=== PATIENT | female | born 1985 | race Caucasian/White ===

== ENCOUNTER 2016-10-01 07:55 | Emergency (ER) | payer MEDICAID ==
--- NOTE | 2016-10-02 06:25 | ER ---
ADMIT: 10/01/2016 RM/LOC: ER [facility] MR#: [id number] [facility] [address] [place], [place] [id number] RYAN BUCKNER [address] [place] [address] Emergency Room Report SEX: F AGE: 30 : 1985 DATE: 10/01/2016 TIME: 0755 hours. Please refer to my T-sheet for complete H and P. Briefly, patient is a 30-year- old who says she has been very busy recently and noticed at the end of the week Saturday that she had been having some urine retention and her back she has been hurting. She says her pain in her back at 6/10. She was seen by [facility], they put her on Cipro. She has taken a couple doses of that and she is here for evaluation. She is saying that she is still concerned that things are not improving. PHYSICAL EXAMINATION: VITAL SIGNS: Blood pressure 135/75, pulse 83, respirations 12, temp 99.2, and sat 96%. GENERAL: No acute distress HEENT: Grossly normal. LUNGS: Clear. HEART: Regular. ABDOMEN: Soft, mildly tender diffusely. Does not localize. No rebound or guarding. No pain at McBurney's point. EMERGENCY DEPARTMENT COURSE: CBC was normal. Chemistries normal. Urine negative. Urine negative. We did a bladder scan, revealed 322, it was prior to her urinate. She did urinate for us, so does not look like she has a lot of retention. She said she has appointment tomorrow to get a pelvic exam done with Dr. Amador, so we did not do one today. ASSESSMENT: 1. Dysuria. 2. Back pain, very stable to this point. PLAN: Fluids. Return if worse. Tylenol or Motrin. Keep her appointment with Dr. Amador. Raúl Porter MD/ ritchie JOB #: [id number] CC: Raúl Porter MD, Attending Physician Corie Amador MD, Family Physician
== END 2016-10-01 10:02 | disposition home or self-care (01) ==
LOC: ER 07:55
DX: M54.5 Low back pain (principal); R30.0 Dysuria; Z87.440 Personal history of urinary (tract) infections; Z88.0 Allergy status to penicillin; Z88.1 Allergy status to other antibiotic agents; Z88.2 Allergy status to sulfonamides; Z88.8 Allergy status to other drugs, medicaments and biological substances; Z91.010 Allergy to peanuts; Z79.899 Other long term (current) drug therapy